=== PATIENT | female | born 1995 ===

== ENCOUNTER 2020-07-29 22:26 | Emergency (ER) | payer SELFPAY ==
--- NOTE | 2020-07-29 22:57 | Emergency Department Report ---
ED General Adult HPI - General Chief complaint: Medical Clearance Stated complaint: ACCIDENTAL STICK Time Seen by Provider: 07/29/20 22:33 Source: patient Mode of arrival: Ambulatory Limitations: No Limitations - History of Present Illness Initial comments: 25-year-old female presents to ED following accidental needlestick. Patient is a nurse in the NICU. States she accidentally stuck herself with with the needle that she was obtaining blood draw from the . Patient states she believes needle was 23-gauge. Patient was stuck on the tip of her right index finger. States she did see blood on her finger following the needlestick. Patient immediately washed her hands with soap and water for approximately 5 minutes. Patient reports her hep B vaccinations are up-to-date. The 's mother tested negative for HIV in January 2020. -: This evening Location: right, upper extremity Improves with: none Worsens with: none Associated Symptoms: denies other symptoms Treatments Prior to Arrival: none ED Review of Systems ROS: Stated complaint: ACCIDENTAL STICK Other details as noted in HPI Comment: All other systems reviewed and negative ED Past Medical Hx - Past Medical History Previous Medical History?: No - Surgical History Past Surgical History?: No - Social History Smoking Status: Never Smoker ED Physical Exam - General Limitations: No Limitations General appearance: alert, in no apparent distress - Head Head exam: Present: atraumatic, normocephalic - Eye Eye exam: Present: normal appearance, EOMI - ENT ENT exam: Present: mucous membranes moist - Neck Neck exam: Present: normal inspection - Respiratory Respiratory exam: Absent: respiratory distress - Cardiovascular Cardiovascular Exam: Present: regular rate, normal rhythm - GI/Abdominal GI/Abdominal exam: Absent: distended - Extremities Exam Extremities exam: Present: normal inspection - Neurological Exam Neurological exam: Present: alert, oriented X3 - Psychiatric Psychiatric exam: Present: normal affect, normal mood - Skin Skin exam: Present: warm, dry, intact, normal color ED Course Vital Signs 07/29/20 22:41 Temperature 97.9 F Pulse Rate 88 Respiratory 16 Rate Blood Pressure 127/72 O2 Sat by Pulse 100 Oximetry - Reevaluation(s) Reevaluation #1: 07/30/20 00:29 LILLIANA Felix spoke with Mary, nursing material handling warehouse supervisor. She states infant's mother has agreed to undergo rapid HIV test. Patient can be discharged at this time. Will be informed of HIV test results. Patient is to follow-up with employee [employer] to get blood drawn. ED Medical Decision Making - Medical Decision Making 25-year-old female presents to ED following accidental needlestick. Patient is a nurse in the NICU. States she accidentally stuck herself with with the needle that she was obtaining blood draw from the . Patient states she believes needle was 23-gauge. Patient immediately washed her hands with soap and water for approximately 5 minutes. Patient reports her hep B vaccinations are up-to-date. The 's mother tested negative for HIV in January 2020. Nursing material handling warehouse supervisor states 's mother has agreed to undergo rapid HIV test. Patient can be discharged at this time. Will be informed of HIV test results. Patient is to follow-up with [facility] to get blood drawn. Patient states she will decide on PCP prophylaxis when she receives the HIV test results Critical care attestation.: If time is entered above; I have spent that time in minutes in the direct care of this critically ill patient, excluding procedure time. ED Disposition Clinical Impression: Needlestick injury accident with exposure to body fluid Disposition: DC-01 TO HOME OR SELFCARE Is pt being admited?: No Condition: Stable Instructions: Needlestick and Sharps Injury, [id number] Additional Instructions: Please follow-up with [facility] tomorrow. Referrals: PRIMARY CAREMD [Primary Care Provider] - 3-5 Days Time of Disposition: 00:32
[2020-07-30 01:35] VITALS: BP 118/76
== END 2020-07-30 00:40 | disposition home or self-care (01) ==
LOC: EEVIPCON 22:26 → ED 22:26
DX: M79.644 Pain in right finger(s) (principal); W46.1XXA Contact with contaminated hypodermic needle, initial encounter; Y92.89 Other specified places as the place of occurrence of the external cause; Y93.89 Activity, other specified; Y99.8 Other external cause status
CPT/HCPCS: 99282